=== PATIENT | female | born 1960 | race Caucasian/White ===

== ENCOUNTER → 2024-10-11 | Outpatient (CLI) | payer MEDICARE, SELFPAY ==
[2024-10-11 15:12] LABS: Collection Type, Urine Clean Catch
[2024-10-11 16:04] LABS: Bilirubin,Urine Negative (Negative); Blood,Urine Negative (Negative); Clarity,Urine Clear (Clear/Hazy); Color,Urine Colorless (Lt Yel-Yel); Glucose, Urine Negative (Negative); Ketones,Urine Negative (Negative); Leukocyte Esterase,Urine Negative (Negative); Nitrite,Urine Negative (Negative); PH,Urine 7.5 (5.0-7.0); Protein,Urine Negative (Neg - Trace); RBC,Urine 1 /hpf (0-3); Specific Gravity,Urine 1.013 (1.001-1.035); Squamous Epithelial Cell,Urine < 1 /hpf (0-5); Urobilinogen,Urine Negative mg/dL (0.0-1.0); WBC,Urine < 1 /hpf (0-5)
== END | disposition home or self-care (01) ==
LOC: SLDO 14:45
PROVIDERS: PCP Family Medicine; Referring Provider Family Medicine; Visit Provider Family Medicine
DX: N39.0 Urinary tract infection, site not specified (principal)
CPT/HCPCS: 81001; 87086

== ENCOUNTER → 2024-11-01 | Outpatient (CLI) | payer MEDICARE, SELFPAY ==
[2024-11-01 10:20] LABS: Basophils % (Auto) 1 % (0-2.5); Eosinophils # (Auto) 0.1 Thou/mm3 (0.0-0.5); Eosinophils % (Auto) 1 % (0-10); Hematocrit 41.6 % (36.0-46.0); Hemoglobin 13.9 g/dL (12.0-16.0); Immature Granulocytes % (Auto) 0 % (0-0); Immature Granulocytes Auto 0.02 Thou/mm3 (0.00-0.00); Lymphocytes # (Auto) 2.2 Thou/mm3 (1.0-4.8); Lymphocytes % (Auto) 27 % (10-50); Mean Corpuscular HGB Conc 33.4 g/dl (31.0-37.0); Mean Corpuscular Hemoglobin 30.2 pg (25.0-35.0); Mean Corpuscular Volume 90 fL (80-100); Monocytes # (Auto) 0.8 Thou/mm3 (0.0-0.8); Monocytes % (Auto) 9 % (0-12); Neutrophils # (Auto) 4.9 Thou/mm3 (1.8-7.7); Neutrophils % (Auto) 61 % (37-80); Nucleated Red Blood Cell % 0 /100 WBC (0); Platelet Count 296 Thou/mm3 (140-440); RDW Standard Deviation 41.7 fL (36.4-46.3); Red Blood Count 4.61 Miln/mm3 (4.00-5.20); White Blood Count 8.1 Thou/mm3 (3.6-11.0)
[2024-11-01 10:57] LABS: Alanine Aminotransferase 21 U/L (10-49); Albumin, Serum 4.6 gm/dL (3.4-4.8); Albumin/Globulin Ratio 2.1 (1.2-2.2); Alkaline Phosphatase 102 U/L (46-116); Amylase 68 U/L (30-118); Anion Gap 6 (7-16); Aspartate Amino Transferase 19 U/L (0-34); BUN/Creatinine Ratio 13 Ratio (12-20); Bilirubin,Total 0.4 mg/dL (0.3-1.2); Blood Urea Nitrogen 13 mg/dL (9-23); Calcium 9.9 mg/dL (8.3-10.6); Calcium (Corrected) 9.9 mg/dL (8.5-10.1); Chloride 103 mMol/L (98-107); Globulin 2.2 gm/dL (2.3-3.5); Glucose 87 mg/dL (74-106); Lipase 33 U/L (12-53); Osmolality,Calculated 274 (275-295); Potassium 3.6 mMol/L (3.4-5.1); Sodium 138 mMol/L (136-145); Total Protein 6.8 gm/dL (5.7-8.2); eGFR > 60 See Note
[2024-11-01 12:37] LABS: Urea Breath Test Negative (Negative)
== END | disposition home or self-care (01) ==
LOC: COPL 08:40
PROVIDERS: PCP Family Medicine; Referring Provider Physician Assistant; Visit Provider Physician Assistant
DX: K21.9 Gastro-esophageal reflux disease without esophagitis (principal); R10.9 Unspecified abdominal pain
CPT/HCPCS: 36415; 80053; 82150; 83013; 83014; 83690; 85025

== ENCOUNTER → 2024-11-03 | Outpatient (CLI) | payer MEDICARE, SELFPAY ==
--- NOTE | 2024-11-03 11:30 | XR_ITS ---
Examination: Abdomen sonogram, complete Date and time of exam: June 03, 2024 1208 hours INDICATIONS: Heartburn epigastric pain beginning 8 months ago. Technique: Multiple real-time grayscale transabdominal sonographic images of the abdomen have been obtained. Findings: Absent gallbladder Common bile duct 0.3 cm Pancreatic head 1.3 cm Aorta not enlarged Liver 12.1 cm smooth contour no focal liver lesions Normal hepatopedal portal venous oh Patent IVC Right kidney 8.8 x 3.6 x 4.7 cm cortex 1.2 cm Left kidney 10.1 x 4.4 x 3.9 cm cortex 1.5 cm Mild renal parenchymal scar formation No hydronephrosis Spleen 7.4 cm IMPRESSION: Normal common bile duct Small right kidney Bilateral renal cortical thinning Mild bilateral renal parenchymal scar formation
== END | disposition home or self-care (01) ==
PROVIDERS: PCP Family Medicine; Referring Provider Physician Assistant; Visit Provider Physician Assistant
DX: N28.89 Other specified disorders of kidney and ureter (principal)
CPT/HCPCS: 76700

== ENCOUNTER → 2024-11-16 | Outpatient (CLI) | payer MEDICARE, SELFPAY ==
--- NOTE | 2024-11-16 09:28 | XR_ITS ---
Examination: Upper GI series with KUB Esophagram standard Fluoroscopy 23 spot fluoroscopic films of the esophagus and stomach Exam date and time: November 16, 2024 1209 hours INDICATIONS: Heartburn and gastroesophageal reflux disease months TECHNIQUE AND FINDINGS: Patient swallowed thin barium with 23 spot fluoroscopic films of the esophagus and stomach Fluoroscopy 0.5 minute Primary peristaltic esophageal waves Moderate continuous gastroesophageal reflux No esophageal constricting lesion No esophageal ulcerations No gastric mass deformity or ulceration Duodenal bulb expands symmetrically Duodenal sweep jejunal loops unremarkable IMPRESSION: Moderate continuous gastroesophageal reflux No stricture gastroesophageal junction No gastric mass deformity or ulceration
== END | disposition home or self-care (01) ==
LOC: CDIM 09:22
PROVIDERS: PCP Family Medicine; Referring Provider Physician Assistant; Visit Provider Physician Assistant
DX: K21.9 Gastro-esophageal reflux disease without esophagitis (principal)
CPT/HCPCS: 74240

== ENCOUNTER → 2025-07-18 | Outpatient (CLI) | payer MEDICARE, SELFPAY ==
--- NOTE | 2025-07-18 14:54 | XR_ITS ---
Examination: Abdomen AP single view Technique: AP portable supine abdomen, single view Exam date and time: July 18, 2025 1513 hours INDICATIONS: Upper abdominal pain one week. FINDINGS: Moderate air and stool throughout the colon Surgical clips left abdomen and right upper abdomen No free air No abnormal calcific densities IMPRESSION: Nonobstructive bowel gas pattern
== END | disposition home or self-care (01) ==
LOC: CDIM 14:50
PROVIDERS: PCP Family Medicine; Referring Provider Registered Nurse; Visit Provider Registered Nurse
DX: R10.12 Left upper quadrant pain (principal)
CPT/HCPCS: 74018